=== PATIENT | male | born 1955 | race Caucasian/White ===

== ENCOUNTER 2018-06-25 13:32 | Inpatient (IN) ==
[2018-06-25] MEDS ORDERED: FLU VACCINE IM ONE (15:42)
[2018-06-25] MEDS ORDERED: PREVNAR 13 IM ONE (15:43)
[2018-06-25 16:17] LABS: BASO# 0.03 X1000 (0.0-0.2); BASO% 0.3 % (0.0-0.8); EOS# 0.23 X1000 (0.0-0.7); EOS% 2.5 % (0.0-10.0); HEMATOCRIT 38.9 % (42.0-52.0); HEMOGLOBIN 12.4 g/dL (14.0-18.0); LYMPH# 1.15 X1000 (1.2-3.4); LYMPH% 12.5 % (20.5-51.1); MCH 32.2 PG (27-31); MCHC 31.9 g/dL (33-37); MONO# 1.35 X1000 (0.11-0.59); MONO% 14.6 % (1.7-9.3); MPV 9.9 FL (7.4-10.4); NEUT# 6.46 X1000 (1.4-6.5); NEUT% 70.1 % (42.2-75.2); PLT 183 X1000 (130-400); RBC 3.85 XMIL (4.7-6.1); WBC 9.22 X1000 (4.8-10.8)
[2018-06-25 16:27] LABS: INR 0.89; PROTIME 12.8 Seconds (11.0-16.0)
[2018-06-25 16:42] LABS: AGAP 12; ALBUMIN 3.5 g/dL (3.5-5.0); ALKALINE PHOSPHATASE 77 U/L (32-122); BUN 11 mg/dL (8-22); CHLORIDE 99 mmol/L (98-107); COSMO 275; CREATININE 0.5 mg/dL (0.7-1.2); ESTIMATED GFR > 60; GLUCOSE 100 mg/dL (70-104); GOT 11 U/L (10-34); GPT 9 U/L (10-44); POTASSIUM 4.5 mmol/L (3.5-5.1); SODIUM 138 mmol/L (136-145); TCO2 27 mmol/L (25-35); TOTAL PROTEIN 7.1 g/dL (6.3-8.3)
--- NOTE | 2018-06-25 17:27 | Diag Imaging Result Doc PS360 ---
CHEST-2 VIEWS - 06/25/2018 INDICATION: GI BLEED COMPARISON: 06/13/2016 FINDINGS: Stable advanced COPD. There is some stable biapical pleural scarring. No new or focal infiltrates. Heart size is normal. IMPRESSION: Severe COPD with pulmonary scarring. Electronically signed by Sp Ojeda 06/25/2018 5:24 PM
[2018-06-25] MEDS: PROTONIX IV SCH (17:31)
[2018-06-25] MEDS: SODIUM CHLORIDE 0.9% INJ SCH (17:32)
[2018-06-25] MEDS: NS 1,000 ML IV SCH (17:32)
[2018-06-25 18:02] LABS: URINE SOURCE VOIDED
[2018-06-25 18:11] LABS: BILIRUBIN URINE NEGATIVE (NEGATIVE); BLOOD URINE TRACE (NEGATIVE); COLOR YELLOW; GLUCOSE URINE NEGATIVE (NEGATIVE); KETONE URINE 10 mg/dL (NEGATIVE); LEUKOCYTES URINE LARGE (NEGATIVE); NITRITE URINE POSITIVE (NEGATIVE); PH URINE 6.5; PROTEIN URINE TRACE mg/dL (NEGATIVE); SP GRAVITY URINE 1.017; TURBIDITY URINE HAZY (CLEAR); UROBILINOGEN URINE 2 mg/dL (NORMAL)
[2018-06-25 18:13] LABS: UR EPITHELIAL CELLS <10 /HPF (<10); URINE BACTERIA 4+ /HPF; URINE RBC <10 /HPF (<10); URINE WBC TNTC /HPF (<10)
[2018-06-25 18:20] LABS: URINE CRYSTALS NONE SEEN
[2018-06-25] MEDS: NICODERM PATCH TD SCH (18:31)
[2018-06-25] MEDS: VENTOLIN HFA INH SCH (20:30)
[2018-06-25] MEDS: CARAFATE LIQUID PO SCH (21:32)
[2018-06-25] MEDS: MORPHINE IR PO SCH (21:32)
[2018-06-25 21:51] LABS: HEMATOCRIT 38.3 % (42.0-52.0); HEMOGLOBIN 12.4 g/dL (14.0-18.0)
--- NOTE | 2018-06-26 00:14 | HISTORY AND PHYSICAL ---
HISTORY OF PRESENT ILLNESS: A 63-year-old white gentleman, who came for hematemesis. The patient claims he is not feeling well since Hannah. The patient had recurrent sinus infections, chest congestion, cough, fever and chills. The patient claims he gets better for 2 days, but then again he gets sick. The patient was trying to drink more liquid to get well. The patient also had significant abdominal pain, nausea, epigastric discomfort, at times problems swallowing. This time, the patient got sick 4 days ago, with more epigastric pain, heartburn, nausea. The patient vomited fresh blood yesterday. According to patient, it was a moderate amount. The patient was taking [id number] Nexium 20 mg 2 tablet every day. He was not getting better. The patient had an upper GI endoscope done a few years ago. Told to have esophageal Aysha. The patient did not go for a followup. He denied any bleeding per rectum. The patient does have chronic constipation I recommended colonoscopy, but the patient declined. Unquantified weight loss. The patient does smoke. He does have chronic cough with scanty sputum production. The patient denied any hemoptysis. The patient had an abnormal CT scan in the past. He did not come for followup. The patient does have problems swallowing. No heat or cold intolerance. At times, polyuria, polydipsia. Does have pain in the epigastric area. The patient has chronic low back pain. The patient is going to a pain clinic. The patient is on pain medicine and Neurontin. Denied any nosebleed, bleeding gums, hematuria, or hematochezia. Denied being depressed, but claims to be under stress due to his sickness. No further history available at this time. ALLERGIES: Codeine, sulfa, and Bactrim. CURRENT MEDICATIONS: Includes morphine sulfate 30 mg 3 times a day, Neurontin, [id number] Nexium 20 mg 2 tablet daily. FAMILY HISTORY: Father had peptic ulcer disease requiring surgery. Brother with peptic ulcer disease. PAST MEDICAL HISTORY: Significant for gastritis and reflux disease, COPD, chronic back pain. The patient had 5 back surgeries, 2 arthroscopic surgeries on the right knee, pneumonia, and scarring in the upper lung. Weight loss. PERSONAL HISTORY: . Lives with the . The patient does smoke. Denied alcohol or substance abuse. REVIEW OF SYSTEMS: As per HPI. PHYSICAL EXAMINATION: GENERAL: Elderly white gentleman, in mild distress. VITAL SIGNS: Blood pressure 123/61, pulse 98, respiration 14, temperature 98 degrees. SKIN: Normal turgor. No rash or petechiae. HEENT: Head atraumatic, normocephalic. [place] conjunctivae. Anicteric sclerae. Extraocular muscle movement normal. Fundus cannot be penetrated. Good oral hygiene. No tonsillopharyngeal congestion or exudate. Ears and nose benign. NECK: Supple. No JVD, thyromegaly, or lymphadenopathy. CHEST: Bilateral air entry present. A few basal crepitations. No rales. CARDIOVASCULAR: S1 and S2 heard. No gallop or thrill. ABDOMEN: Soft. No distention. Bowel sounds present. Mild epigastric tenderness. No guarding or rigidity. RECTAL: Deferred. EXTREMITIES: No cyanosis or clubbing. No acute DVT. Crepitation in both the knee joints. Tenderness in the lumbosacral spine. 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 LABORATORY DATA: WBC count 9.22, hemoglobin 12.4, hematocrit 38.9, platelet count 183,000. PT/INR 0.89, PTT 30.5. Electrolytes were fairly benign. CONSIDERATION: 1. Upper gastrointestinal bleed, most likely due to peptic ulcer disease. Considering his chronic history, possibility of esophageal lesion in the form of esophagitis, ulcer, or malignancy cannot be ruled out. 2. Chronic low back pain. 3. Tobacco abuse. 4. Osteoarthritis of the knee. 5. The patient does have macrocytosis. PLAN: 1. Admit the patient. 2. Serial hemoglobin and hematocrit. 3. IV hydration. 4. Continue pain medicine for low back pain. 5. Close observation. 6. Smoking cessation. Overall plan discussed at length with the patient, and he is in agreement. cc: Amador Brush MD
[2018-06-26] MEDS: CARAFATE LIQUID PO SCH ×4 (02:17→20:31)
[2018-06-26] MEDS: NS 1,000 ML IV SCH ×3 (02:19→20:36)
--- NOTE | 2018-06-26 02:58 | GASTROENTEROLOGY CONSULTATION ---
DATE: 06/25/2018 REFERRING PHYSICIAN: Amador Brush MD. PRIMARY CARE DOCTOR: Amador Brush MD. REASON FOR CONSULTATION: Hematuria. HISTORY OF PRESENT ILLNESS: Mr. Bautista is a 63-year-old male who was admitted on 06/25/2018 for symptoms of hematemesis. According to the patient and his the patient had one episode of vomiting blood last night. The patient has history of reflux disease. He had been off his medications for more than a month. He was also taking NSAIDs at home in the form of Advil. Last night he became nauseous and threw up bright red blood. The patient's had a picture of the vomitus. It appeared to be specks of bright red blood in there. The patient has had a previous EGD and colonoscopy done by Dr. Green in 2017, at that time he was told that he has reflux disease. The patient has a history of chronic smoking. He has a history of COPD as well. The patient denies any blood in the stools or black stools. PAST MEDICAL HISTORY: 1. Chronic pain. 2. Chronic obstructive pulmonary disease. 3. Reflux disease. ALLERGIES: Codeine, sulfamethoxazole, and trimethoprim. SOCIAL HISTORY: He drinks occasionally. He smokes since age 14. He is a heavy smoker. Denies any history of illicit drugs. He is . His is supportive and present at the bedside. FAMILY HISTORY: Denies any family history of stomach cancer or colon cancer. MEDICATIONS AT HOME: 1. Morphine sulfate 30 mg p.o. t.i.d. 2. Gabapentin 800 mg 4 times daily. 3. Nexium 40 mg once daily. MEDICATIONS IN THE HOSPITAL: Include: 1. He was given a flu vaccine and pneumococcal vaccine. 2. Carafate 1 g 6 hours. 3. Normal saline 100 mL/hour. 4. Albuterol inhaler 2 puffs 4 times a day. 5. Morphine instant release 30 mg 3 times daily. 6. Nicoderm patch 21 mg every day. 7. Protonix b.i.d. 8. He is NPO except ice chips. 9. He is also receiving IV fluids in the form of normal saline 100 mL/hour. REVIEW OF SYSTEMS: Denies any current fevers, rigors, chills, or shortness of breath. She does have a history of baseline COPD. He does have a history of chronic back pain. He denies any blood in the stools, black stools or bloody stools. He denies any blood in the urine. He denies any neurologic complaints. PHYSICAL EXAMINATION: Vital Signs: Temperature is 98.1 degrees, pulse rate of 82, respiratory rate 17, blood pressure 105/54, saturating 94% on room air. Body weight of 119 pounds 7 ounces. BMI 16.2 kg/m2. General: A thinly built man lying in bed in no acute distress. HEENT: Pale, mild pallor, no icterus. Pupils are equal and reactive to light and accommodation. Neck: Supple. Abdomen: Soft, nondistended. Discomfort in the epigastrium. No rebound. No guarding. Extremities: No cyanosis, clubbing, edema. Neurologic: Alert, awake and oriented. LABORATORY DATA: 1. Hemoglobin and hematocrit is 12.4 and 38.9, white count of 9.2, platelet count of 183,000. INR 0.89, PT 12.8, PTT of 30.5. Sodium 138, potassium 4, chloride 99, bicarbonate 27, BUN 11, creatinine 0.5, glucose of 100, calcium is 9, total bilirubin is 0.4, AST 11 , ALT 9, alkaline phosphatase 77, total protein 7.1, albumin of 3.5. Urinalysis showing trace protein, positive ketones, trace blood, positive nitrite, large leukocytes. His microbiology, no studies were ordered. 2. X-ray of the chest was done today which showed severe COPD with pulmonary scarring, heart size normal. IMPRESSION AND PLAN: 1. Hematemesis. 2. Chronic obstructive pulmonary disease. 3. Reflux disease. 4. Likely urinary tract infection. His is chronic smoker. 5. Mild anemia. RECOMMENDATIONS: 1. We will give the patient Protonix twice daily. We will keep on Carafate 1 g 6 hours. We 1 IV fluids. We will keep him NPO except ice chips. 2. We will schedule patient for EGD tomorrow under anesthesia. The risks, benefits, indications, and alternatives to the procedure were discussed with his family at bedside. The patient has severe COPD and is a current smoker. The risks of procedure are higher because of underlying lung pathology and this was discussed with the patient and all questions were answered. 3. The patient is likely has UTI. We will check urine culture and we will start on IV Levaquin. 4. The above plans were discussed with the patient and family. All questions answered. Please call us with questions. cc: MD Amador Freire MD MTDD
[2018-06-26] MEDS: PROTONIX IV SCH ×2 (03:57→17:55)
[2018-06-26 04:14] LABS: BASO# 0.04 X1000 (0.0-0.2); BASO% 0.5 % (0.0-0.8); EOS# 0.26 X1000 (0.0-0.7); EOS% 3.5 % (0.0-10.0); HEMATOCRIT 37.8 % (42.0-52.0); HEMOGLOBIN 12.2 g/dL (14.0-18.0); LYMPH# 1.33 X1000 (1.2-3.4); LYMPH% 17.9 % (20.5-51.1); MCH 32.5 PG (27-31); MCHC 32.3 g/dL (33-37); MCV 100.8 FL (81-99); MONO# 1.23 X1000 (0.11-0.59); MONO% 16.5 % (1.7-9.3); MPV 9.7 FL (7.4-10.4); NEUT# 4.59 X1000 (1.4-6.5); NEUT% 61.6 % (42.2-75.2); PLT 160 X1000 (130-400); RBC 3.75 XMIL (4.7-6.1); RDW 13.9 % (11.5-14.5); WBC 7.45 X1000 (4.8-10.8)
[2018-06-26 04:34] LABS: AGAP 10; ALBUMIN 3.3 g/dL (3.5-5.0); ALKALINE PHOSPHATASE 70 U/L (32-122); BUN 8 mg/dL (8-22); CALCIUM 8.9 mg/dL (8.8-10.2); CHLORIDE 101 mmol/L (98-107); COSMO 274; CREATININE 0.5 mg/dL (0.7-1.2); ESTIMATED GFR > 60; GLUCOSE 100 mg/dL (70-104); GOT 8 U/L (10-34); GPT 7 U/L (10-44); POTASSIUM 4.3 mmol/L (3.5-5.1); SODIUM 138 mmol/L (136-145); TCO2 27 mmol/L (25-35); TOTAL BILIRUBIN 0.61 mg/dL (0.20-1.00); TOTAL PROTEIN 6.6 g/dL (6.3-8.3)
--- NOTE | 2018-06-26 07:37 | PROGRESS NOTE ---
DATE: 06/26/2018 SUBJECTIVE: Mr. Bautista is doing fair. The patient is complaining of abdominal pain, burning in nature. He denied any hematemesis since admission. The patient had some chills. The patient admitted with upper GI bleed, weight loss, dysphagia, chronic abdominal pain. I did urinalysis which did reveal UTI. The patient was not able to sleep well. OBJECTIVE: Vital signs noted. The patient had low-grade fever of 99. Blood pressure was 99/47, pulse 76, respiration 18, temperature 99. Neck supple. No JVD. Lungs: Bilateral occasional wheezing. CVS: S1 and S2 heard. Abdomen soft. The patient does have tenderness in the epigastrium and upper abdomen. Extremities: No cyanosis, clubbing. No acute DVT. RN TELEPHONIC: Alert, awake able to move all 4 limbs. CONSIDERATION: 1. Upper GI bleeding. 2. Dysphagia. 3. Urinalysis did reveal urinary tract infection. 4. Chronic abdominal pain. The patient did have an abnormal chest CT in the past. The patient is a chronic heavy smoker, history of weight loss. I am going to get amylase and lipase. Check CT scan of the chest, abdomen, and pelvis for further evaluation. Continue rest of the treatment and close observation. LABORATORY DATA: Lab done today: WBC count 7.45, hemoglobin 12.2, hematocrit 37.8, platelet count 160,000. BUN was 8, creatinine 0.5. Urinalysis: Nitrite was positive. Ioa-wkhfpwzp-fd- count WBC, 4+ bacteria suggestive of UTI. PLAN: Overall plan discussed with the patient, and he is in agreement. A chest x-ray did reveal severe COPD with pulmonary scaring. cc: Amador Brush MD
--- NOTE | 2018-06-26 07:52 | EKG Report ---
Test Performed on : 06/25/2018 6:23:46 PM Test Reason : PRE-OP, GI BLEED Blood Pressure : / mmHG Vent. Rate : 083 BPM Atrial Rate : 083 BPM P-R Int : 134 ms QRS Dur : 082 ms QT Int : 342 ms P-R-T Axes : 068 083 078 degrees QTc Int : 401 ms Normal sinus rhythm. Early repolarization Otherwise normal ECG When compared with ECG of 26-JAN-2014 20:09, No significant change was found Confirmed by Alyse MATAMOROS, Clay Vilchis ([id number]) on 06/26/2018 4:47:51 PM
[2018-06-26] MEDS: VENTOLIN HFA INH SCH ×4 (08:09→20:27)
[2018-06-26] MEDS ORDERED: XYLOCAINE-MPF 2% ONE (08:42)
[2018-06-26] MEDS ORDERED: FENTANYL ONE (08:43)
[2018-06-26] MEDS ORDERED: DIPRIVAN 1% ONE (08:43)
--- NOTE | 2018-06-26 09:08 | Diag Imaging Result Doc PS360 ---
EXAM: CT THORAX/ABD/PELVIS W/CON INDICATION: abd.pain TECHNIQUE: This exam was performed using automated exposure control, adjustment of mA or kV according to patient size, and/or use of iterative reconstruction technique. COMPARISON: CT chest dated 08/17/2016 FINDINGS: CHEST: There is advanced bullous emphysema at the lung apices. 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 No airspace consolidations are appreciated. There is no pleural fluid collection and no pneumothorax. There is no cardiomegaly. There are a few calcified left hilar lymph nodes indicating prior granulomatous disease. There is a calcified granuloma in the left lower lobe. There is no significant mediastinal or hilar lymphadenopathy, otherwise. ABDOMEN/PELVIS: There are layering stones in the lumen of the gallbladder. There is no pericholecystic inflammatory change. The liver, spleen, pancreas, and adrenal glands are essentially unremarkable. There is abnormal enhancement involving the left kidney in a pattern of a striated nephrogram with mild surrounding stranding consistent with pyelonephritis. There is mild thickening involving the urothelium at the left renal pelvis. The right kidney is unremarkable. The urinary bladder wall is thickened suggesting cystitis. There is a fair amount of stool in the colon. There is no obstructive bowel pattern. The remainder of the GI tract is essentially unremarkable. There are degenerative and postsurgical fusion changes involving the lower lumbar spine. IMPRESSION: 1.Cystitis and left pyelonephritis as described. 2.Cholelithiasis. 3.Stable advanced COPD as well as biapical fibrosis. Electronically signed by Dane Quiñonez 06/26/2018 9:06 AM
[2018-06-26] MEDS: MORPHINE IR PO SCH ×3 (09:52→20:31)
[2018-06-26] MEDS: DIFLUCAN 100 MG/NS 100 MG/50 ML IVPB IV SCH (09:53)
[2018-06-26] MEDS: LEVAQUIN 750 MG/D5W 750 MG/150 ML IVPB IV SCH (10:50)
--- NOTE | 2018-06-26 12:11 | OPERATIVE NOTE ---
PROCEDURE DATE: 06/26/2018 ATTENDING PHYSICIAN: Dr. Brush. TITLE OF PROCEDURE: Esophagogastroduodenoscopy with gastric biopsy. PREOPERATIVE DIAGNOSES: 1. Hematemesis. 2. Mild anemia. 3. Chronic obstructive pulmonary disease. 4. Chronic smoker. 5. Previous history of esophageal candidiasis. POSTOPERATIVE DIAGNOSES: 1. Severe Aysha esophagitis in the proximal middle and distal esophagus. 2. Severe esophagitis, erosive at the GE junction. Distal esophagus, likely from reflux with culture Schatzki ring, LA grade 4. 3. Hiatal hernia measuring 3 cm. 4. Z-line was at 40 cm. 5. Evidence of gastritis, erosive in the body and antrum biopsy. 6. Some amount of bile in the stomach. 7. Normal fundus, cardia, incisura. 8. Evidence of normal duodenal bulb and second portion of duodenum. ESTIMATED BLOOD LOSS: Minimal. COMPLICATIONS: None. ANESTHESIA: Monitored anesthesia care per the anesthesiologist. SPECIMENS: Gastric random biopsy. PROCEDURE: After informed consent, the patient explained the risks, benefits, indications, and alternatives to the procedure, the patient was prepared for EGD. The patient was brought to the OR. He was turned in left lateral position. A bite block was placed in the patient's mouth. After adequate monitored anesthesia care, the upper scope was introduced through the oral vestibule all the way to the second portion of the duodenum and esophagus. There was evidence of whitish carpeting in the proximal middle and distal esophagus which could be sloughed away easily, leaving underlying erythematous base. This is highly suggestive of candidal esophagitis. The distal esophagus showed evidence of erythema, friability, erosions, ulcerations , in the form of erosive esophagitis, LA grade 4. There was evidence of erosive Schatzki ring, causing resistive passage of the scope. The Z-line was at 40 cm. There was evidence of 3 cm sliding hiatal hernia. The stomach showed evidence of bile which was suctioned. There was evidence of mild patchy erythema, erosion in the body and antrum. This was biopsied. Retroflexion revealed normal fundus, cardia, incisura. The duodenal bulb and second portion of the duodenum appeared normal. There was evidence of some oozing at the distal esophagus from severe esophagitis which stopped on its own. The air and the scope withdrawn. The patient tolerated the procedure and continued to be monitored in the OR in stable condition. RECOMMENDATIONS: 1. Patient will be on fluconazole 100 mg once daily for 2 weeks. 2. Patient will be continued on Protonix twice daily for 3 months and then wean down to once daily. 3. Patient was counseled to quit smoking. 4. The patient will started on full liquid diet. 5. We will start the patient on multivitamin with iron for 3 months for constipation. 6. The patient is in chronic pain, and he is on a high dose of narcotics. The patient will be started on bowel regimen with Jessica-Colace. 7. The patient will call the office in 3 weeks for the biopsy report. 8. Further recommendations pending hospital course. The above plan was discussed with the patient on waking up. Please call us with any further questions. cc: MD Amador Freire MD MTDD
[2018-06-26] MEDS: SODIUM CHLORIDE 0.9% INJ SCH (17:55)
[2018-06-26] MEDS: NICODERM PATCH TD SCH (17:55)
[2018-06-26] MEDS: PERIDEX MT SCH (20:31)
[2018-06-26] MEDS: PERICOLACE PO SCH (20:31)
[2018-06-27] MEDS: PROTONIX IV SCH ×3 (02:50→17:03)
[2018-06-27] MEDS: CARAFATE LIQUID PO SCH ×3 (02:50→14:43)
[2018-06-27] MEDS: SODIUM CHLORIDE 0.9% INJ SCH ×4 (02:50→17:04)
[2018-06-27] MEDS: VENTOLIN HFA INH SCH ×3 (03:48→15:50)
[2018-06-27 06:57] LABS: BASO# 0.03 X1000 (0.0-0.2); BASO% 0.5 % (0.0-0.8); EOS% 3.4 % (0.0-10.0); HEMATOCRIT 36.5 % (42.0-52.0); HEMOGLOBIN 11.6 g/dL (14.0-18.0); IMM GRAN# 0.02 X1000 (0.0-0.04); IMM GRAN% 0.3 % (0.0-0.5); LYMPH# 1.35 X1000 (1.2-3.4); LYMPH% 23.2 % (20.5-51.1); MCH 31.8 PG (27-31); MCHC 31.8 g/dL (33-37); MONO# 0.97 X1000 (0.11-0.59); MONO% 16.7 % (1.7-9.3); MPV 10.4 FL (7.4-10.4); NEUT# 3.24 X1000 (1.4-6.5); NEUT% 55.9 % (42.2-75.2); PLT 166 X1000 (130-400); RBC 3.65 XMIL (4.7-6.1); RDW 13.5 % (11.5-14.5); WBC 5.81 X1000 (4.8-10.8)
[2018-06-27 07:12] LABS: AGAP 10; ALBUMIN 3.1 g/dL (3.5-5.0); ALKALINE PHOSPHATASE 68 U/L (32-122); BUN 4 mg/dL (8-22); CALCIUM 8.7 mg/dL (8.8-10.2); CHLORIDE 102 mmol/L (98-107); COSMO 278; CREATININE 0.4 mg/dL (0.7-1.2); ESTIMATED GFR > 60; GLUCOSE 94 mg/dL (70-104); GOT 7 U/L (10-34); GPT 6 U/L (10-44); MAGNESIUM 1.7 mg/dL (1.5-2.7); POTASSIUM 4.1 mmol/L (3.5-5.1); SODIUM 141 mmol/L (136-145); TCO2 29 mmol/L (25-35); TOTAL BILIRUBIN 0.61 mg/dL (0.20-1.00); TOTAL PROTEIN 6.2 g/dL (6.3-8.3)
[2018-06-27] MEDS: LEVAQUIN 750 MG/D5W 750 MG/150 ML IVPB IV SCH (07:42)
[2018-06-27] MEDS: PERIDEX MT SCH (08:57)
[2018-06-27] MEDS: PERICOLACE PO SCH (08:57)
[2018-06-27] MEDS: MORPHINE IR PO SCH ×2 (08:58→14:43)
[2018-06-27] MEDS: DIFLUCAN 100 MG/NS 100 MG/50 ML IVPB IV SCH (08:59)
--- NOTE | 2018-06-27 09:59 | DISCHARGE SUMMARY ---
ADMISSION DATE: 06/25/2018 DISCHARGE DATE: FINAL DISCHARGE DIAGNOSES: 1. Upper gastrointestinal bleed. 2. Esophageal candidiasis. 3. Hiatal hernia. 4. Severe esophagitis. 5. Gastritis, erosive in the body and the antrum. 6. Pyelonephritis. 7. Severe chronic obstructive pulmonary disease. 8. Chronic low back pain. HISTORY OF PRESENT ILLNESS: Mr. Bautista is a 63-year-old white gentleman admitted with upper GI bleed and esophageal pain, epigastric pain, problems swallowing, weight loss. The patient was sick for many months. The patient does have chronic low back pain. He was going to Pain Clinic, on pain medicine and Neurontin. The patient had hematemesis the day prior to admission. The patient got concerned, came to see me in the office, evaluated, and admitted for further care. HOSPITAL COURSE: The patient was started on IV fluid, IV proton pump inhibitor , symptomatic treatment, will monitor his hemoglobin and hematocrit. GI consult obtained with Dr. Zaragoza. Patient's upper GI endoscope results reviewed. I did CT scan of the chest, abdomen, and pelvis because of abnormal CT in the past. CT scan of abdomen and pelvis did reveal cystitis and left pyelonephritis, cholelithiasis, stable advanced COPD, and apical fibrosis. I had lengthy discussion with the patient about smoking cessation, take medication regularly, anti- reflux measure, and proper followup. The patient was very eager to go home today. He said it was the 1st of the month and he has to transfer some money and pay bills, which his cannot do. PHYSICAL EXAMINATION: General: Clinically, he is feeling much better, stronger. Abdominal pain improved. Patient does feel hungry. Vital signs: Noted. Neck: Supple. No JVD. Lungs: Bilateral good air entry present. CVS: S1 and S2 heard. Abdomen: Soft. No distention. Tenderness much less. Extremities: No cyanosis, clubbing. No acute DVT. 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 LABORATORY DATA: Order for today is pending. One done yesterday: Electrolytes were benign, potassium 4.3, amylase and lipase were normal. Urinalysis did reveal nitrite positive, leukocyte was present, 4+ bacteria. I am going to follow today's blood test result. If clinical condition permits, I am planning to discharge patient home this afternoon at request. I did discuss with the pharmacy about drug interaction between Levaquin and Diflucan and, according to pharmacist, it was grade 4 minor. Patient admission EKG noted. His QTc was normal. Will continue monitoring patient. Follow up with me in a week. Smoking cessation. Anti-reflux measure. In case of more distress, call us back or go to emergency room. CONDITION ON DISCHARGE: Overall discharge condition, satisfactory. cc: Amador Brush MD MTDD
[2018-06-27 15:32] VITALS: BP 123/53
== END 2018-06-27 16:30 | disposition home or self-care (01) | DRG 378 ==
LOC: DIRADM 13:32 → 4N 15:10
PROVIDERS: ADMIT Internal Medicine; ATTEND Internal Medicine
CPT/HCPCS: 71020; 71046; 71260; 74177; 80053; 81001; 82150; 83690; 83735; 85014; 85018; 85025; 85610; 85730; 86850; 86900; 86901; 87077; 87088; 87186; 88305; 88312; 90670; 90686; 93005; 93010; 94640; 94799; A9270; C9113; J1450; J1956; J3010; J7030; Q9967; S0164